=== PATIENT | female | born 1950 | race African-American/Black ===

== ENCOUNTER → 2016-11-21 | Day surgery (SDC) | payer MEDICARE, OTHER ==
[~2016-11-21] VITALS: Ht 167.6 cm; Wt 77.5 kg
[~2016-11-21] MED LIST: AMLO10TA2 PO; ASPI81TA81 PO; ATOR40TA16 PO; BALANCED SALT SOLN OPHT IRRIG 15 ML BTL LEFT EYE ONE; LIDOCAINE HCL 1% 30 ML VIAL INFIL ONE; LIDOCAINE HCL 2% JELLY 5 ML SYRINGE ONE; LIPI40TA PO; LISI10TA3 PO; METO100T PO; NEOM0.1S4 LEFT EYE; TETA1INJ5 IM; TETRACAINE 0.5% OPTH SOLN 15 ML BTL LEFT EYE ONE; TOBRAMYCIN/DEXAMETHASONE OPTH OINT 3.5 GM TUBE LEFT EYE ONE; VISCOAT OPHT IRRIG SOLN 0.75 ML SYRINGE LEFT EYE ONE; ZOSTINJ SQ
[2016-11-21 09:24] VITALS: BP 169/91; PULSE 60; RESP 16; TEMP 97.6; O2SAT 96
[2016-11-21 11:50] VITALS: TEMP 98.3
--- NOTE | 2016-11-21 12:00 | PD.OP ---
Operative Report Date of Surgery: Nov 21, 2016 Preoperative Diagnosis: (1) Pterygium of left eye Postoperative Diagnosis: (1) Pterygium of left eye Procedure: removal of pterygium and amniotic membrane graft left eye Anesthesia: Local Surgeon: Kelle Baer Seed Trucker(s): none Operation and Findings: Consent was obtained and patient was taken back to the operating room. She was prepped and draped in the usual sterile fashion. She was given tetracaine eyedrops followed by preservative lidocaine 1%. A wire lid speculum was placed in the left eye. Blunt Luz Maria scissors were used to dissect under the pterygium and cut off of the conjunctiva. Scleral blade was used to dissect the pterygium off the cornea. A tao gordy was used to smoothen the corneal surface with irrigation. Cautery was used to stop bleeding on conjunctiva. Calipers measured the conjunctival defect to be 9x11mm so this size amniotic membrane graft was cut. The graft was glued onto the conjunctiva with Tisseel glue and also sutured in all 4 corners with 7-0 Vicryl. Tobradex ointment and patch was placed over the left eye. Patient tolerated procedure well and was sent to PACU in good condition. Kelle Baer MD Nov 21, 2016 12:00
[2016-11-21 12:30] VITALS: BP 164/82; PULSE 61; RESP 16; O2SAT 98
== END | disposition home or self-care (01) ==
LOC: PHSDC 08:02
PROVIDERS: ATTEND Ophthalmology
DX: H11.002 Unspecified pterygium of left eye (principal); I10 Essential (primary) hypertension; K21.9 Gastro-esophageal reflux disease without esophagitis; E78.5 Hyperlipidemia, unspecified; M19.90 Unspecified osteoarthritis, unspecified site; I25.2 Old myocardial infarction; Z79.82 Long term (current) use of aspirin; Z87.891 Personal history of nicotine dependence
CPT/HCPCS: 65426; V2790